=== PATIENT | male | born 1995 | race African-American/Black ===

== ENCOUNTER 2017-12-19 20:14 | Emergency (ER) | payer MEDICAID ==
[~2017-12-19] VITALS: Ht 170.2 cm; Wt 64.0 kg
[2017-12-19 23:05] VITALS: BP 121/82
== END 2017-12-19 23:11 | disposition home or self-care (01) ==
LOC: ER 21:48
DX: J11.1 Influenza due to unidentified influenza virus with other respiratory manifestations (principal)
CPT/HCPCS: 71046; 99284